=== PATIENT | male | born 1995 | race Caucasian/White ===

== ENCOUNTER → 2017-09-23 17:42 | Outpatient (CLI) | payer OTHER, SELFPAY ==
--- NOTE | 2017-09-23 17:50 | RAD_ITS ---
STUDY: X-RAY - LUMBAR SPINE REASON FOR EXAM: Male, 21 years old. Back pain, leg pain for one year. TECHNIQUE: 3 view(s) of the lumbar spine were obtained. COMPARISON: None FINDINGS: Normal lumbar lordosis. There is no substantial scoliosis. There is a normal alignment of the vertebrae. Normal vertebral bodies and endplates. L5-S1 mild disc space narrowing. On the lateral view there is slight narrowing of the neural foramen at L5-S1. The soft tissue structures are unremarkable. RAD/Lumbar Spine 2 or 3 Views IMPRESSION: Mild degenerative changes at L5-S1. If the patient has symptoms suggestive of neural foramina narrowing at L5-S1 consider correlation with cross-sectional imaging. Electronically Signed: Enoc Nettles MD at 5:55 EDT , Service support ,
== END ==
PROVIDERS: Family Provider Family Medicine; PCP Family Medicine; Visit Provider Anesthesiology Pain Medicine
DX: M54.9 Dorsalgia, unspecified (principal); M79.606 Pain in leg, unspecified
CPT/HCPCS: 72100

== ENCOUNTER 2018-07-11 17:29 | Emergency (ER) | payer SELFPAY ==
[2018-07-11 17:29] VITALS: BP 159/97; PULSE 76; RESP 16; TEMP 36.6; O2SAT 100; BMI 27.3
[2018-07-11] MEDS: Naproxen 500 MG Tablet PO (18:09)
--- NOTE | 2018-07-11 18:15 | RAD_ITS ---
STUDY: X-RAY - LUMBAR SPINE REASON FOR EXAM: Male, 22 years old. Fall TECHNIQUE: 3 view(s) of the lumbar spine were obtained. COMPARISON: None FINDINGS: There is no evidence of fracture or dislocation in the lumbar spine. The vertebral body heights and disc spaces are well-maintained. There are no significant degenerative changes. RAD/Lumbar Spine 2 or 3 Views IMPRESSION: No fracture or dislocation in the lumbar spine. Electronically Signed: Wilfred Kirkpatrick, at 18:48 EST Tel , Service support ,
--- NOTE | 2018-07-11 19:23 | ED.DCSUM_ITS ---
- ER Visit Summary Date of Service: 07/11/18 Chief Complaint: Back pain History of Present Illness: The patient is a 22 M presenting for evaluation secondary to back pain. Patient reports that over the course of about the last 2 years he has been dealing with back pain. Initially this started with a lifti ng and twisting injury about 2 years ago, but has been persistent since then. He did initially have intake with pain management and they told him that potentially he had some spinal stenosis. Patient states that his pain is continuous and seems to be worse with lying flat and moving. It is located in his lower back and actually radiates all the way down his bilateral legs to the level of his ankles. He denies any numbness or weakness. Denies any fevers night sweats or unintended weight loss. Denies any bowel or bladder incontinence recent surgeries or history of injections or IV drug abuse. Patient states that he takes Advil and it somewhat takes the edge off of it. Pain management put him on muscle relaxers and that did not help at all. Physical Examination: Vitals: Within normal limits General: Well-nourished well-developed no acute distress Head: Normocephalic atraumatic ENT: Moist mucous membranes Neck: Supple no JVD Cardiovascular: Heart regular rate and rhythm no murmurs Respiratory: Respirations nondistressed, lung sounds clear to auscultation bilaterally Abdominal: Soft, nontender, nondistended, normal bowel sounds, no evidence of abdominal masses or pulsatile mass Back: Normal to inspection, some midline tenderness to palpation in the lumbar region, straight leg raise negative bilaterally Extremities: Nontender, nonedematous, 2+ radial and PT pulses bilaterally symmetric Skin: Normal color no rash Neuro: 5/5 strength hip flexion, knee flexion, knee extension, dorsiflexion, plantarflexion, EHL. Sensation intact over all dermatomes of the lower extremities bilaterally, 2+ patellar and Achilles reflexes bilaterally symmetric, negative clonus bilaterally Test Results: Lumbar x-rays negative Emergency Department Course and Treatment: Patient presented for evaluation secondary to back pain. Symptomatology seems consistent with lumbar radiculopathy. X-rays were obtained due to the chronicity of this issue to rule out the possibility of bony lesions. This was found to be negative. Patient will be placed on a Medrol pack at this point, was recommended to follow-up again with pain management as he may benefit from therapy or epidural injections. Disposition: Discharge Impression: 1. Lumbar radiculopathy This note was generated with [employer] dictation software. It may contain incorrect words, spelling, and punctuation that were not noted in review of the chart prior to signing ED Disposition - Plan for ED Patient: Disposition: Home or Assisted Living Chief Complaint: Back Diagnosis: Lumbar radiculopathy Instructions: ED Sciatica Prescriptions: Meloxicam [Mobic] 7.5 mg PO DAILY #30 tab MethylPREDNISolone DosePak [Medrol DosePak] 4 mg PO UD #1 box Referrals: Sherine Hill MD [STAFF PHYSICIAN] - As soon as possible
[2018-07-11 19:28] VITALS: BP 140/74; PULSE 70; RESP 14; O2SAT 98
== END 2018-07-11 19:36 | disposition home or self-care (01) ==
PROVIDERS: Emergency Provider Emergency Medicine
DX: M54.16 Radiculopathy, lumbar region (principal)
CPT/HCPCS: 72100; 99283

== ENCOUNTER 2018-07-24 23:53 | Emergency (ER) | payer SELFPAY ==
[2018-07-24 23:54] VITALS: BP 128/80; PULSE 113; RESP 18; TEMP 36.7; O2SAT 97; BMI 27.3
--- NOTE | 2018-07-25 00:58 | ED.VISSUMM ---
- ER Visit Summary Date of Service: 07/25/18 Chief Complaint: Sore throat History of Present Illness: The patient is a 22 M who presents with a sore throat. It is been present for 2 days. His pain is worse on the left side. His pain is worse with swallowing. It is sharp. He complains of pain radiating to his left ear with swallowing. He does have some congestion but this is a chronic issue. He is also had some diarrhea. He reports cough. Physical Examination: Afebrile heart rate 113 vitals otherwise normal Patient does have posterior oropharyngeal erythema with tonsillar exudates the uvula is midline there is no tonsillar asymmetry no trismus clear speech Anterior cervical lymphadenopathy worse on the left Heart regular rhythm tachycardia Lungs clear Abdomen soft Test Results: Rapid strep negative Emergency Department Course and Treatment: Patient was treated with Decadron for symptomatic relief. He was advised on supportive care. He understands to return for new or worsening symptoms and was discharged home. Treatment Plan: [] Disposition: Discharge Impression: Viral pharyngitis This note was generated with [employer] dictation software. It may contain incorrect words, spelling, and punctuation that were not noted in review of the chart prior to signing ED Disposition - Plan for ED Patient: Referrals: Care Physician,No Primary [Primary Care Provider] -
--- NOTE | 2018-07-25 00:59 | ED.DEP ---
ED Disposition - Plan for ED Patient: Instructions: ED Pharyngitis Viral Referrals: Care Physician,No Primary [Primary Care Provider] -
[2018-07-25 01:02] VITALS: BP 122/74; PULSE 100; RESP 18; O2SAT 96
== END 2018-07-25 01:03 | disposition home or self-care (01) ==
LOC: ED 07-25 00:15
PROVIDERS: Emergency Provider Emergency Medicine
DX: J02.9 Acute pharyngitis, unspecified (principal); R19.7 Diarrhea, unspecified; H92.02 Otalgia, left ear; Z72.0 Tobacco use
CPT/HCPCS: 87880; 99283

== ENCOUNTER 2018-11-14 20:15 | Emergency (ER) | payer SELFPAY ==
[2018-11-14 20:17] VITALS: BP 146/77; PULSE 106; RESP 14; TEMP 36.8; O2SAT 96; BMI 28.5
--- NOTE | 2018-11-14 20:33 | CT_ITS ---
HISTORY:ABD PAIN X 2 WK/BLOOD IN STOOL TODAY ABD PAIN X 2 WK/BLOOD IN STOOL TODAY TECHNIQUE: Helically acquired images were obtained of the abdomen and pelvis following IV contrast. A radiation dose optimization technique was used for this scan. IV Contrast dosage and agent:100ML Isovue 370 Oral contrast: Yes no diverticulitis. There are air-fluid levels within the colon. No wall thickening is noted. COMPARISON: None FINDINGS: # of images incl. paperwork: 405 LOWER CHEST: Lung bases are clear. No cardiomegaly or pericardial effusion observed. LIVER: Homogeneous. No focal mass. GALLBLADDER AND BILIARY TREE: Contracted No calcified gallstones. There is no gallbladder distension or wall edema. No intra- or extrahepatic biliary ductal dilation. KIDNEYS AND URETERS: Normal renal size and position. There is no hydronephrosis. ADRENAL GLANDS: Non-enlarged. SPLEEN: Normal size without focal cystic or solid mass. PANCREAS: No focal cystic or solid mass. BOWEL: Focal dilated loop of small bowel in the left upper quadrant fluid filled. Additional fluid-filled loops of small bowel are also seen within the left upper quadrant. The ileal bowel loops are not distended. This may be secondary to enteritis. The terminal ileum is incompletely distended air-fluid levels are seen within the colon. No obstruction is noted. No diverticulitis. There is no significant wall thickening in the colon including the rectum LYMPH NODES: No enlarged mesenteric or retroperitoneal lymph nodes. PERITONEUM: No ascites or free air. No other fluid collection. VESSELS: Aorta is non-dilated. URINARY BLADDER: Mildly distended REPRODUCTIVE ORGANS: No pelvic masses or pelvic ascites. ABDOMINAL WALL: No discrete abdominal or pelvic wall hernia observed. BONES: No lytic or blastic abnormality observed. CT/Abdomen/Pelvis WITH Contrast IMPRESSION: There is no evidence of mechanical obstruction. There are fluid-filled mildly dilated loops of small bowel in left upper quadrant/jejunum which can be seen with enteritis. The ileum is unremarkable There are air-fluid levels seen within the colon. It is not significantly distended and there is no wall thickening. No diverticulitis The appendix is not visualized but no pericecal inflammation The gallbladder is contracted Individualized dose optimization techniques were used for this CT. at 2238 Reported and signed by: Lauryn Middleton DO Electronically Signed: Lauryn Middleton DO at 22:37 EDT Tel , Service support ,
--- NOTE | 2018-11-14 20:47 | ED.DCSUM_ITS ---
- ER Visit Summary Date of Service: 11/14/18 Chief Complaint: Abdominal pain History of Present Illness: The patient is a 23 M who notes 2 weeks of a near constant mid to lower abdominal pain. He has been alternating diarrhea with formed stools. No fevers nausea or vomiting. Today he noted some bright red blood in the water. He notes rectal pain during these past 2 weeks with bowel movements. No familial history of ulcerative colitis or Crohn's. No weight loss. No fevers. No urinary symptoms. Physical Examination: Afebrile vital signs are stable Gen: Well-nourished well-developed Head: Normocephalic atraumatic Eyes: Perrl EOMI ENT: TMs clear no rhinorrhea moist mucous membranes Neck: Supple no lymphadenopathy no JVD nontender CVS: Regular rate rhythm no murmurs normal S1-S2 Respiratory: No distress clear to auscultation bilaterally chest nontender Abdomen: Soft mild tenderness to palpation without guarding or rebound nondistended normal bowel sounds no masses Rectal: No fissure or hemorrhoids felt. No blood on the glove. No obvious abscess or skin irritation Back: Nontender Extremity: Nontender no edema Skin: Normal color no rash Neuro: alert orientated ?3 CN II-XII intact normal strength sensation reflexes gait cerebellar Psych: Normal affect normal mood Test Results: White count is nonspecifically elevated at 13. Letter lites are normal. CT down pelvis demonstrates no evidence of colitis or diverticulitis. There are some dilated loops of small bowel consistent with an enteritis. Emergency Department Course and Treatment: Patient was advised of the findings. Patient was advised that if symptoms persist he will most likely need a colonoscopy. We will refer him to primary care. Also give him the name of gastroenterology to follow-up with if he needs one. Impression: 1. Acute abdominal pain 2. Enteritis This note was generated with [employer] dictation software. It may contain incorrect words, spelling, and punctuation that were not noted in review of the chart prior to signing ED Disposition - Plan for ED Patient: Disposition: Home or Assisted Living Instructions: ED Gastroenteritis Non Infec Referrals: Flavio Chandler MD [STAFF PHYSICIAN] - (call to arrange follow up) Additional Instructions: For Gastroenterology in [place]
[2018-11-14 21:01] LABS: ALB/GLOB Ratio 1.2 RATIO (0.9-2.4); AST(SGOT) 18 U/L (15-37); Alanine Aminotransfer ALT/SGPT 39 U/L (16-61); Albumin, Serum 4.2 g/dL (3.2-5.0); Alkaline Phosphatase 114 U/L (45-117); Anion Gap 7 (5-15); BUN 14 mg/dL (7-18); BUN/Creat Ratio 15.5 RATIO (10-20); Calcium,Total 9.4 mg/dL (8.5-10.1); Chloride 105 mmol/L (98-107); Creatinine, Serum 0.91 mg/dL (0.70-1.30); EST Glomerular Filtration Rate 112 mL/min (>60); Est Glom Filt Rate - Afr Amer 136 mL/min (>60); Estimated Creatinine Clearance 124.23 ml/min; Globulin 3.4 g/dL (2.2-4.2); Glucose 86 mg/dL (74-106); Lipase 56 U/L (73-393); Potassium 3.8 mmol/L (3.5-5.1); Protein, Total 7.6 g/dL (6.4-8.2); Sodium Level 139 mmol/L (136-145)
[2018-11-14 21:02] LABS: Absolute Lymphocyte Count 3.01 X10^3/ul (0.83-4.51); Absolute Neutrophil Count 4.5 X10^3/uL (2.0-7.7); Basophil# 0.09 X10^3/uL; Basophil% 0.8 % (0-1); Differential Indicated SCAN CRITERIA MET; Eosinophil# 3.53 X10^3/uL; Eosinophils% 29.5 % (0-5); Hematocrit 42.2 % (40-54); Lymphocyte # 3.01 X10^3/ul (4.0); Lymphocyte % 25.2 % (19-41); Mean Corp Hgb Conc 35.5 g/gl (32-36); Mean Corpuscular Hgb 30.7 pg (27.0-32.0); Mean Corpuscular Volume 86.5 fL (80-94); Mean Platelet Vol. 8.4 fl (6.2-12.0); Monocyte# 0.76 X10^3/uL; Monocyte% 6.4 % (0-10); Neutrophil # 4.53 X10^3/uL (2.7-7.7); Neutrophil % 37.8 % (47-70); POSITIVE COUNT YES; POSITIVE DIFFERENTIAL YES; POSITIVE MORPHOLOGY NO; Platelet Count 162 K/mm3 (150-450); RBC Distribution Width CV 12.4 % (11.6-14.6); RBC Distribution Width SD 38.9 fl (35.1-43.9); Red Blood Count 4.88 M/mm3 (4.6-6.2)
[2018-11-14 21:41] LABS: Differential Comment SCANNED; Platelet Estimate ADEQUATE (ADEQ); Reactive Lymphocyte 1+
[2018-11-14 22:49] VITALS: BP 129/72; PULSE 76; RESP 15; O2SAT 97
[2018-11-17 15:10] LABS: Pathologist Review Reviewed
== END 2018-11-14 23:01 | disposition home or self-care (01) ==
PROVIDERS: Emergency Provider Emergency Medicine
DX: K52.9 Noninfective gastroenteritis and colitis, unspecified (principal)
CPT/HCPCS: 74177; 80053; 83690; 85025; 99283; Q9967; A4216

== ENCOUNTER 2020-06-23 11:05 | Emergency (ER) | payer SELFPAY ==
[2020-06-23 11:05] VITALS: BP 115/86; PULSE 80; RESP 16; TEMP 35.6; O2SAT 98; BMI 34.5
[2020-06-23 11:06] VITALS: BP 115/86; PULSE 85; RESP 15; TEMP 35.6; O2SAT 98
--- NOTE | 2020-06-23 11:19 | ED.DCSUM_ITS ---
History of Present Illness Chief Complaint: Other, Pain/Inj Informant: Patient Narrative: 24-year-old male with no significant past medical history presents with right- sided jaw pain. States it is swelling and aching. States it began last night. States it had resolved throughout the night but began again this morning. States that he is a former smoker. Denies any fever, chills, headache, vision change, neck pain. Denies any trauma. Past Medical History - Allergies and Home Meds Allergies/Adverse Reactions: Allergies No Known Allergies Allergy (Verified 06/23/20 11:19) Primary Care Physician: Care Physician,No Primary [Primary Care Provider] - Past Medical History: None Surgical History: no surgical history Lives: Alone Smoking Status: Former smoker Alcohol: None Drugs: None Review of Systems General: Denies: Chills, Fever, Sweats Eyes: Denies: Visual changes - bilaterally, Diplopia ENT: Reports: - - right jaw pain. Denies: Rhinorrhea, Sore throat Cardiovascular: Denies: Chest pain, Palpitations Respiratory: Denies: Dyspnea, Cough, Dyspnea on exertion Gastrointestinal: Denies: Abdominal pain, Nausea, Vomiting, Diarrhea, Melena, Hematochezia Genitourinary: Denies: Dysuria, Hematuria, Frequency Musculoskeletal: Denies: Back pain, Extremity Pain Skin: Denies: Rash, Wounds Neurological: Denies: Headache, Weakness, Numbness Physical Exam Vital Signs/Narrative: Vital Signs Temp Pulse Resp BP Pulse Ox 06/23/20 11:05 96.0 F L 80 16 115/86 H 98 Inital Vital Signs reviewed: Yes General: Well nourished, Well developed, No Acute Distress Head: Normocephalic, Atraumatic Eyes: Perrl, EOMI ENT: Moist mucous membranes, No rhinorrhea, - - Mild edema to the right face. No overlying erythema. Poor dentention throughout. No abscess. Floor of mouth soft. Neck: Supple, Nontender Cardiovascular: Regular rate, Regular rhythm, No murmurs Respiratory: No distress, CTA bilaterally, Chest nontender Abdomen: Soft, Nontender, Nondistended, Normal bowel sounds Back: Nontender, Normal Inspection Extremities: Nontender, No edema Skin: Normal color, No rash Neurological: Alert, Oriented x3, Cranial nerves II-XII grossly intact, Normal Strength, Normal Sensation Psychological: Normal affect, Normal Mood Diagnostic/Tx/Re-eval - Medical Decision Making Appears well and nontoxic. Phonating and tolerating secretions. Floor of mouth soft to palpation. Patient has poor dentition this is likely a dental infection. Patient will be treated with penicillin. Given Toradol in the emergency department and Naprosyn for home. Will be given dental follow-up. Asked to return for new or worsening symptoms. Patient agreeable and discharged home in stable condition. Impression: 1. Facial swelling 2. Dental caries ED Disposition - Plan for ED Patient: Disposition: Home or Assisted Living Instructions: ED Dental Pain Prescriptions: Naproxen [Naprosyn] 500 mg PO BID #14 tab Prescription Printed Penicillin V Potassium 500 mg PO 4X/DAY #40 tab Prescription Printed Additional Instructions: Please follow up with dentist in next 2-3 days.
[2020-06-23] MEDS: Ketorolac 15 MG/ML Vial IM (11:21)
== END 2020-06-23 11:44 | disposition home or self-care (01) ==
LOC: ED 11:38
PROVIDERS: Emergency Provider Emergency Medicine
DX: K02.9 Dental caries, unspecified (principal); R22.0 Localized swelling, mass and lump, head; Z87.891 Personal history of nicotine dependence
CPT/HCPCS: 96372; 99282

== ENCOUNTER 2020-10-13 07:17 | Emergency (ER) | payer SELFPAY ==
[2020-10-13 07:19] VITALS: BP 129/88; PULSE 103; RESP 18; TEMP 36.6; O2SAT 98; BMI 34.2
--- NOTE | 2020-10-13 07:39 | EDS_ITS ---
HPI History of Present Illness Chief Complaint: Palpitations Detail of Chief Complaint: Concern for panic attacks for several months Informant: patient Onset/Context/Timing Onset: Month(s) Current Severity: Moderate Narrative Narrative: Patient states that he has struggled with what he believes are panic attacks and anxiety for several months. Patient states that had a hard time sleeping last night because he feels anxious and feels like his heart racing and at times feels like he can get a full breath. Patient was concerned that he did not feel he could go to work today because he does not do well with heat and at work it is quite hot and oftentimes his symptoms get exacerbated when he is at work. Patient not currently medicated with antianxiety medications. He does not feel suicidal or homicidal. Patient states that otherwise he feels fine. Prior similar symptoms: Yes PFSH PFSH Home Medications NK 10/13/20 [History Last Taken Unknown] lorazepam [Ativan] 1 mg PO TID PRN #14 tab 10/13/20 [Rx Last Taken Unknown] Allergy/AdvReac Type Severity Reaction Status Date / Time No Known Allergies Allergy Verified 10/13/20 07:18 Social History Smoking Status: Former smoker ROS ROS ED Constitutional Constitutional ED: Reports systems reviewed and no addt'l complaints, except as documented; Denies body ache(s), change in weight or chills Eyes Eyes: Denies acute decrease in peripheral vision, change in vision, double vision or loss of vision ENT ENT ED: Reports none; Denies ear pain, lip swelling, loss taste/smell, neck pain, otalgia or sore throat Cardiovascular Cardiovascular: Reports none and racing heartbeat; Denies abdominal pain, chest pain with activity, leg edema, lightheadedness, orthopnea, palpitations, par oxysmal nocturnal dyspnea, rapid heart rate or syncope Respiratory/Chest Respiratory/Chest: Reports none and dyspnea; Denies change in mental status, dry cough, dyspnea on exertion, hemoptysis, orthopnea, paroxysmal nocturnal dyspnea, shortness of breath at rest or shortness of breath with exertion Gastrointestinal Gastrointestinal: Reports none; Denies abdominal pain, change in stool character, diarrhea, hematemesis, hematochezia, melena, rectal bleeding or vomiting Genitourinary Genitourinary ED: Reports none; Denies abdominal discomfort, anuria, dysuria, genital pain or polyuria Musculoskeletal Musculoskeletal: Reports none; Denies arthralgias, back pain, difficulty walking, extremity pain, muscle weakness or myalgias Integumentary Reports none; Denies abscess or rash Neurologic Neurologic: Reports none; Denies abnormal gait, confusion, focal weakness, frequent falls, headache(s), loss of vision, numbness, paresthesias, radicular pain, vertigo or weakness Psychiatric Psychiatric: Reports systems reviewed and no addt'l complaints, except as documented and none; Denies behavioral changes, confusion, difficulty concentrating, hallucinations, suicidal ideation, tactile hallucinations or visual hallucinations Endocrine Endocrinology: Denies none, cold intolerance, excessive sweating, fatigue or heat intolerance Hematologic/Lymphatic Hematologic/Lymphatic: Reports none; Denies anemia, easy bleeding or easy bruising Allergic/Immunologic Allergic/Immunologic ED: Denies as per HPI, none, lip swelling, mouth swelling, throat swelling, tongue swelling or hives EXAM Physical Exam Const Vital Signs: 10/13/20 07:19 Temperature 97.8 F Temperature Source Temporal Pulse Rate 103 H Respiratory Rate 18 Blood Pressure 129/88 H Blood Pressure Mean 101 Pulse Ox 98 Oxygen Delivery Method Room Air Positive well nourished and well developed General Appearance ED: well developed and NAD HEENT Reports TM's clear and moist mucous membranes normocephalic and atraumatic; Negative for trauma or tenderness Tympanic Membrane ED: Yes TM's clear Eyes PERRL and EOMs intact bilaterally General Eye ED: Negative for pale conjunctiva or scleral icterus Neck no lymphadenopathy, supple and no JVD General: Negative for tenderness Chest Wall inspection of chest normal and palpation of chest normal Chest: Negative for tenderness Resp normal respiratory effort and clear to auscultation bilaterally Effort and Inspection: Negative for respiratory distress or pain with movement Auscultation: Negative for rhonchi, wheezes or diminished lung sounds Cardio regular rate, regular rhythm, S1 normal heart sound, S2 normal heart sound and no murmurs Peripheral Pulses: pulses 2+ throughout GI normal to inspection, nondistended, normoactive bowel sounds, soft to palpation, non-tender, non-distended and no masses Back/Spine no CVA tenderness and no thoracic nor lumbar tenderness Extremity normal to inspection General Extremety ED: Negative for edema General Extremity: Negative for edema Neuro oriented x3, CN's II-XII intact bilaterally, no sensory deficits noted and gait normal Sensorium / Orientation: awake, alert, oriented to person, oriented to place and oriented to time Motor Exam: strength 5/5 throughout and strength abnormal Psych mental status grossly normal Skin no rashes or lesions noted and no wounds MDM MDM MDM Narrative Medical decision making narrative: I suspect patient likely having anxiety and panic attacks. Patient drove himself here and does not want to have any medication here but would like a prescription for something to help with this until he can follow-up with a primary care physician. Patient will be given a prescription for Ativan as needed for suspected anxiety. EKG Initial EKG: Attestation: I personally reviewed and interpreted this EKG as follows: Interpretation: Sinus Rhythm and No Acute Injury Pattern Comments: Sinus rhythm at 98 bpm with no acute ST segment changes. Discharge Plan Triage Chief Complaint: Palpitations ED Provider: Doc Patel Dx/Rx/DC Orders Clinical Impression: Anxiety Instructions: ED Anxiety Reaction Prescriptions: New lorazepam [Ativan] 1 mg tablet 1 mg PO TID PRN (Reason: anxiety) Qty: 14 RF: 0 No Action NK RF: 0 Stand Alone Forms: ED Work / School Excuse Primary Care Provider: Care Physician,No Primary Referrals: Yovanny Cr MD [STAFF PHYSICIAN] - 3-5 Days Care Physician,No Primary [Primary Care Provider] -
[2020-10-13 08:06] VITALS: BP 141/91; PULSE 80; RESP 14; O2SAT 98
--- NOTE | 2020-10-13 08:15 | EKG12_ITS ---
Test Reason : PALPS Blood Pressure : / mmHG Vent. Rate : 098 BPM Atrial Rate : 098 BPM P-R Int : 142 ms QRS Dur : 082 ms QT Int : 356 ms P-R-T Axes : 034 267 010 degrees QTc Int : 454 ms Normal sinus rhythm Normal ECG Confirmed by GIFTY ROBISON, JIGNA ([id number]), news editor ULICES MORA ([id number]) on 10/17/2020 10:08:57 AM Referred By: ANGELICA Confirmed By:JIGNA DURBIN MD
== END 2020-10-13 08:11 | disposition home or self-care (01) ==
LOC: ED 08:10
PROVIDERS: Emergency Provider Emergency Medicine; PCP Internal Medicine
DX: R00.2 Palpitations (principal); F41.0 Panic disorder [episodic paroxysmal anxiety]; F41.9 Anxiety disorder, unspecified; Z79.899 Other long term (current) drug therapy; Z87.891 Personal history of nicotine dependence
CPT/HCPCS: 93005; 99282

== ENCOUNTER 2021-06-20 09:37 | Emergency (ER) | payer SELFPAY ==
[2021-06-20 09:39] VITALS: BP 123/97; PULSE 116; RESP 18; TEMP 36.6; O2SAT 98; BMI 32.1
--- NOTE | 2021-06-20 10:34 | EDS_ITS ---
HPI History of Present Illness Chief Complaint: Dental Informant: patient Onset/Context/Timing Onset: Yesterday Context: Gradual Onset Timing: Continuous Current Severity: Mild Maximum Severity: Mild Associated Symptoms Assocated Symptom - Dental: face swelling; Negative for fever, jaw swelling, cold sensitivity or hot sensitivity Narrative Narrative: 25-year-old male no seen past medical history. Currently on no medications nor any allergies. He has had dental pain left front upper tooth and he now has some swelling of the gums and of his left face. Denies any fever. No trauma. States this all began yesterday. Prior similar symptoms: Yes Recent Illness/Hospitalization: No PFSH PFSH Medical History no medical history Home Medications lorazepam [Ativan] 1 mg PO TID PRN #14 tab 10/13/20 [Rx Last Taken Unknown] penicillin V potassium 500 mg PO 4X/DAY #40 tab 06/20/21 [Rx Last Taken Unknown] Allergy/AdvReac Type Severity Reaction Status Date / Time No Known Allergies Allergy Verified 06/20/21 09:38 Surgical History no surgical history Social History Smoking Status: Never smoker ROS ROS ED ROS Narrative Denies. Review of Systems ROS Unobtainable: Denies due to encephalopathy Constitutional Constitutional ED: Denies fever(s) Eyes Eyes: Denies change in vision ENT ENT ED: Denies ear pain Cardiovascular Cardiovascular: Denies chest pain Respiratory/Chest Respiratory/Chest: Denies dyspnea Gastrointestinal Gastrointestinal: Denies abdominal pain, diarrhea, nausea or vomiting Genitourinary Genitourinary ED: Denies dysuria Musculoskeletal Musculoskeletal: Denies myalgias Integumentary Denies rash Neurologic Neurologic: Denies headache(s) Psychiatric Psychiatric: Denies depression Endocrine Endocrinology: Denies polyuria Hematologic/Lymphatic Hematologic/Lymphatic: Denies easy bruising Allergic/Immunologic Allergic/Immunologic ED: Denies urticaria EXAM Physical Exam Narrative Exam Narrative: 25-year-old male no acute distress. Vital signs stable afebrile. HEENT exam he has mild gum swelling of the right Upper jaw on the front. No abscess. No trismus. Nothing to drain. Posterior pharynx normal. Neck nontender no lymphadenopathy. Minimal swelling to the right side of his cheek. Lungs clear to auscultation bilaterally. Heart regular rhythm. No murmur. Abdomen soft nontender. Otherwise exam unremarkable. Const Vital Signs: 06/20/21 09:39 Temperature 97.9 F Temperature Source Temporal Pulse Rate 116 H Respiratory Rate 18 Blood Pressure 123/97 H Blood Pressure Mean 105 Pulse Ox 98 Oxygen Delivery Method Room Air Positive well nourished and well developed; Negative for cachectic, contractures or unkempt General Appearance ED: well developed and NAD; Negative for unkempt, cachectic, contractures or pallor Nutritional Appearance: Negative for cachectic HEENT HEENT Narrative: Mild right upper gum swelling. No asthma process. No trismus. Mild right facial swelling. No lymphadenopathy. tenderness; Negative for trauma Mouth ED: Yes tongue normal and Yes salivary gland normal Mouth: tongue normal and salivary gland normal Teeth and Gingiva: gingiva abnormal Throat: posterior oropharynx normal Eyes PERRL and EOMs intact bilaterally Neck no lymphadenopathy, supple and no JVD General: normal visual inspection; Negative for anterior neck swelling or tenderness Lymph Lymphatic: no lymphadenopathy noted; Negative for lymphadenopathy Chest Wall inspection of chest normal and palpation of chest normal Resp normal respiratory effort and clear to auscultation bilaterally Cardio regular rate, regular rhythm, S1 normal heart sound, S2 normal heart sound and no murmurs GI normal to inspection, nondistended, normoactive bowel sounds, non-tender, non- distended and no masses Palpation: soft Back/Spine no CVA tenderness General Back: Negative for CVA tenderness Thoracic Spine / Upper Back: Negative for thoracic spinal tenderness or paraspinal muscle tenderness Extremity normal to inspection and no joint enlargement General Extremety ED: Negative for edema General Extremity: Negative for edema Neuro oriented x3, moves all extremities and no focal motor deficits Sensorium / Orientation: alert, oriented to person, oriented to place and oriented to time; Negative for orientation impaired Psych mental status grossly normal Appearance: Negative for unkempt Attitude: No agitated Mood & Affect: Negative for depressed, anxious or tearful Skin no rashes or lesions noted General Skin Exam: Negative for pallor MDM MDM MDM Narrative Medical decision making narrative: 25-year-old male with gingivitis. Will start on Pen-Vee K first dose given in ER. 4 times a day for 10 days. Follow-up with a dentist. Discharge Plan Triage Chief Complaint: Dental ED Provider: Paxton Ramirez Dx/Rx/DC Orders Clinical Impression: Acute gingivitis, Dental infection Instructions: Understanding Gingivitis Prescriptions: New penicillin V potassium 500 mg tablet 500 mg PO 4X/DAY Qty: 40 RF: 0 No Action lorazepam [Ativan] 1 mg tablet 1 mg PO TID PRN (Reason: anxiety) Qty: 14 RF: 0 Primary Care Provider: Care Physician,No Primary Referrals: Silvana Juarez [NON-STAFF] - As soon as possible Care Physician,No Primary [Primary Care Provider] - Activity Restrictions/Additional Instructions: Tylenol and Motrin for pain. Warm salt water gargling. Use antibiotic 1 pill 4 times a day for 10 days. Call and follow-up with a dentist as soon as possible. Disposition Disposition: Home, Self Care
[2021-06-20] MEDS: Penicillin Vk 250 MG Tablet 500 MG PO (10:37)
[2021-06-20 10:43] VITALS: BP 127/88; PULSE 59; RESP 16; O2SAT 97
== END 2021-06-20 10:44 | disposition home or self-care (01) ==
PROVIDERS: Emergency Provider Emergency Medicine; Visit Provider Emergency Medicine
DX: K05.00 Acute gingivitis, plaque induced (principal); K04.7 Periapical abscess without sinus
CPT/HCPCS: 99283

== ENCOUNTER 2021-12-31 20:10 | Emergency (ER) | payer BC, SELFPAY ==
[2021-12-31 20:11] VITALS: BP 137/90; PULSE 104; RESP 18; TEMP 36.5; O2SAT 98; BMI 33.4
--- NOTE | 2021-12-31 20:37 | ED.VIS.LOWEX ---
HPI History of Present Illness Chief Complaint: Lower Extremity Injury Detail of Chief Complaint: Puncture wound to right foot Informant: patient Narrative Narrative: Patient presents to the emergency department chief complaint of puncture wound to the right foot that occurred an hour and a half ago. Patient states that he stepped on a board that had a echo nail in it. Patient is unsure when his last tetanus was but he thinks it was over 12 years ago. Patient has no medical history otherwise. PFSH PFSH Medical History no medical history Home Medications lorazepam 1 mg tablet (Ativan) 1 mg PO TID PRN anxiety #14 tabs 10/13/20 [Rx Last Taken Unknown] penicillin V potassium 500 mg tablet 500 mg PO 4X/DAY #40 tabs 06/20/21 [Rx Last Taken Unknown] ciprofloxacin HCl 500 mg tablet 500 mg PO BID #20 TABLETS 12/31/21 [Rx Last Taken Unknown] Allergy/AdvReac Type Severity Reaction Status Date / Time No Known Allergies Allergy Verified 12/31/21 20:12 Surgical History no surgical history Social History Smoking Status: Never smoker ROS ROS ED Review of Systems ROS Unobtainable: other Constitutional Constitutional ED: Reports lethargy; Denies chills, fever(s), sweats or weight loss Eyes Eyes: Denies blurry vision, change in vision or diplopia ENT ENT ED: Denies rhinorrhea or sore throat Cardiovascular Cardiovascular: Reports chest pain and racing heartbeat; Denies orthopnea Respiratory/Chest Respiratory/Chest: Reports dyspnea and dyspnea on exertion; Denies cough, orthopnea or sputum Gastrointestinal Gastrointestinal: Denies abdominal pain, diarrhea, nausea or vomiting Genitourinary Genitourinary ED: Denies dysuria, hematuria or urinary frequency Musculoskeletal Musculoskeletal: Denies arthralgias, back pain, myalgias or neck pain Integumentary Reports other Details: Puncture wound right foot ; Denies abscess, Abrasions or rash Neurologic Neurologic: Denies headache(s) or weakness Psychiatric Psychiatric: Denies anxiety, depression or suicidal thoughts Endocrine Endocrinology: Denies polydipsia, polyphagia or polyuria Hematologic/Lymphatic Hematologic/Lymphatic: Denies easy bleeding, easy bruising or lymphadenopathy Allergic/Immunologic Allergic/Immunologic ED: Denies mouth swelling, tongue swelling or urticaria EXAM Physical Exam Const Vital Signs: 12/31/21 20:11 Temperature 97.7 F L Temperature Source Temporal Pulse Rate 104 H Respiratory Rate 18 Blood Pressure 137/90 H Blood Pressure Mean 105 Pulse Ox 98 Oxygen Delivery Method Room Air Positive well nourished and well developed General Appearance ED: well developed and NAD HEENT Reports TM's clear and moist mucous membranes normocephalic and atraumatic; Negative for trauma or tenderness Tympanic Membrane ED: Yes TM's clear Eyes PERRL and EOMs intact bilaterally General Eye ED: Negative for pale conjunctiva or scleral icterus Neck no lymphadenopathy, supple and no JVD General: Negative for tenderness Chest Wall inspection of chest normal and palpation of chest normal Chest: Negative for tenderness Resp normal respiratory effort and clear to auscultation bilaterally Effort and Inspection: Negative for respiratory distress or pain with movement Auscultation: Negative for rhonchi, wheezes or diminished lung sounds Cardio regular rate, regular rhythm, S1 normal heart sound, S2 normal heart sound and no murmurs Peripheral Pulses: pulses 2+ throughout GI normal to inspection, nondistended, normoactive bowel sounds, soft to palpation, non-tender, non-distended and no masses Back/Spine no CVA tenderness and no thoracic nor lumbar tenderness Extremity Extremity Narrative: Patient is a small puncture wound to the right foot over the area of the first MTP joint. No active bleeding noted. No foreign bodies noted within the wound. Neurovascularly intact. Patient does state that the nail was intact after he removed his foot off of it. General Extremety ED: Negative for edema General Extremity: Negative for edema Neuro oriented x3, CN's II-XII intact bilaterally, no sensory deficits noted and gait normal Sensorium / Orientation: awake, alert, oriented to person, oriented to place and oriented to time Motor Exam: strength 5/5 throughout and strength abnormal Psych mental status grossly normal Skin no rashes or lesions noted and no wounds MDM MDM MDM Narrative Medical decision making narrative: Because the patient was wearing rubber shoes with socks I will cover him with Cipro. Patient was given an Adacel tetanus booster. 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 Discharge Plan Triage Chief Complaint: Lower Extremity Injury ED Provider: Doc Patel Dx/Rx/DC Orders Clinical Impression: Puncture wound of foot, right Instructions: ED Puncture Wound (Foot) Prescriptions: New ciprofloxacin HCl [ciprofloxacin HCl] 500 MG tablet 500 mg PO BID Qty: 20 0RF No Action lorazepam [Ativan] 1 mg tablet 1 mg PO TID PRN (Reason: anxiety) Qty: 14 0RF penicillin V potassium 500 mg tablet 500 mg PO 4X/DAY Qty: 40 0RF Primary Care Provider: Care Physician,No Primary Referrals: Flavio Chandler MD [STAFF PHYSICIAN] - 3-5 Days Care Physician,No Primary [Primary Care Provider] - Disposition Disposition: Home, Self Care
[2021-12-31] MEDS: Ciprofloxacin 500 MG Tablet PO (21:26)
[2021-12-31] MEDS: Diphth,Pertuss(Acell),Tet Vac 0.5 ML Vial IM (21:26)
[2021-12-31 21:28] VITALS: RESP 16
== END 2021-12-31 21:29 | disposition home or self-care (01) ==
PROVIDERS: Emergency Provider Emergency Medicine; Visit Provider Emergency Medicine
DX: S91.331A Puncture wound without foreign body, right foot, initial encounter (principal); W45.0XXA Nail entering through skin, initial encounter; Z23 Encounter for immunization
CPT/HCPCS: 90471; 99283

== ENCOUNTER 2023-08-30 19:47 | Emergency (ER) | payer BC, SELFPAY ==
[2023-08-30 19:47] VITALS: BP 120/82; PULSE 126; RESP 20; TEMP 38.4; O2SAT 96; BMI 37.9
[2023-08-30 22:57] VITALS: BP 139/94; PULSE 111; PULSE 114; RESP 17; RESP 18; TEMP 39.1; TEMP 39.2; O2SAT 100; O2SAT 99
--- NOTE | 2023-08-30 22:59 | EDS_ITS ---
HPI History of Present Illness Chief Complaint: Fever Detail of Chief Complaint: Fever, chills Informant: patient and spouse/S.O. Onset/Context/Timing Onset: Days (Onset Saturday) Context: Sudden Onset Timing: Continuous and Waxes and wanes Quality: Documented temperature 104.0 ?F Location: Not applicable Current Severity: Moderate Maximum Severity: Severe Worsened by: Possibly dental procedure Relieved by: Nothing Associated Symptoms Associated Symptoms: Not feeling well and myalgias and arthralgias Narrative Narrative: Patient is a 27-year-old male. He underwent dental procedure on Saturday. He had deep cleaning. Shortly after he had his teeth and gums treated he developed sense of unwell. He states he did not feel well. He subsequently developed fever and chills. Tmax is 104.0 ?F. He does complain of mild head pain. He denies rhinorrhea, congestion postnasal drainage. No sore throat. He states he has a slight cough at best. He denies chest pain. He denies abdominal pain. [place] nausea, vomit diarrhea. He denies urologic symptoms. He denies rash. He denies back pain. Prior similar symptoms: No Recent Illness/Hospitalization: No PFSH PFSH Home Medications lorazepam 1 mg tablet (Ativan) 1 mg PO TID PRN anxiety #14 tabs 10/13/20 [Rx Last Taken Unknown] penicillin V potassium 500 mg tablet 500 mg PO 4X/DAY #40 tabs 06/20/21 [Rx Last Taken Unknown] ciprofloxacin HCl 500 mg tablet 500 mg PO BID #20 TABLETS 12/31/21 [Rx Last Taken Unknown] Allergy/AdvReac Type Severity Reaction Status Date / Time No Known Allergies Allergy Verified 08/30/23 19:50 Social History (Updated 08/30/23 @ 23:[address] Guillermo Grullon MD) household members: significant other Smoking Status: Never smoker ROS ROS ED Constitutional Constitutional ED: Reports chills, fever(s) and sweats Eyes Eyes: Denies blurry vision, change in vision or diplopia ENT ENT ED: Reports other Details: Gum pain initially ; Denies ear pain, rhinorrhea or sore throat Cardiovascular Cardiovascular: Reports palpitations; Denies chest pain, orthopnea, paroxysmal nocturnal dyspnea or racing heartbeat Respiratory/Chest Respiratory/Chest: Reports cough; Denies dyspnea, dyspnea on exertion, orthopnea, paroxysmal nocturnal dyspnea or sputum Gastrointestinal Gastrointestinal: Reports nausea; Denies abdominal pain, diarrhea, melena or vomiting Genitourinary Genitourinary ED: Denies dysuria, hematuria or urinary frequency Musculoskeletal Musculoskeletal: Reports myalgias; Denies arthralgias, back pain or neck pain Integumentary Denies abscess, Abrasions or rash Neurologic Neurologic: Reports headache(s); Denies paresthesias or weakness Endocrine Endocrinology: Denies cold intolerance or heat intolerance Hematologic/Lymphatic Hematologic/Lymphatic: Reports systems reviewed and no addt'l complaints, except as documented EXAM Physical Exam Const Vital Signs: 08/30/23 19:47 08/30/23 22:57 08/30/23 22:57 Temperature 101.1 F H 102.6 F H 102.4 F H Temperature Source Oral Oral Oral Pulse Rate 126 H 114 H 111 H Respiratory Rate 20 H 17 18 Respiratory Effort Respiratory Pattern Blood Pressure 120/82 H 139/94 H 139/94 H Blood Pressure Mean 94 109 109 Pulse Ox 96 99 100 Oxygen Delivery Method Room Air Room Air Room Air 08/30/23 23:00 08/30/23 23:38 Temperature 99.8 F H Temperature Source Oral Pulse Rate 105 H Respiratory Rate 105 H Respiratory Effort Normal Respiratory Pattern Normal Blood Pressure 123/67 H Blood Pressure Mean 85 Pulse Ox 97 Oxygen Delivery Method Room Air Positive well nourished, well developed and obese Constitutional Narrative: Patient does not appear well. He does not appear toxic either. General Appearance ED: well developed and NAD; Negative for cyanotic, diaphoretic or pallor Nutritional Appearance: obese HEENT Reports TM's clear and dry mucous membranes HEENT Narrative: Posterior pharynx out erythema or exudate. Uvula is midline. Patient has evidence of periodontal disease dental cavities etc. There is no trismus. There is no evidence or concern for Ludewig's angina. There is no preauricular lymphadenopathy. There is no facial swelling or erythema. There is slight nasal drainage noted. Tympanic Membrane ED: Yes TM's clear Mouth ED: Yes dry mucous membranes Mouth: dry mucous membranes Eyes PERRL and EOMs intact bilaterally General Eye ED: Negative for pale conjunctiva or scleral icterus Neck no lymphadenopathy, supple and no JVD Neck Narrative: Trachea is midline. There is no stridor. There is no dysphonia. There is no cervical lymphadenopathy. Chest Wall inspection of chest normal and palpation of chest normal Resp normal respiratory effort and clear to auscultation bilaterally Cardio regular rhythm, S1 normal heart sound, S2 normal heart sound and no murmurs Rate: tachycardic GI normal to inspection, nondistended, normoactive bowel sounds, non-tender, non- distended and no masses; Negative for hepatosplenomegaly Auscultation: normoactive bowel sounds Back/Spine no CVA tenderness Back/Spine Narrative: There is no point percussion tenderness over the dorsal, lumbar or cervical spine. Cervical Spine: Negative for cervical spine tenderness Thoracic Spine / Upper Back: Negative for thoracic spinal tenderness Lumbar Spine / Lower Back: Negative for lumbar spinal tenderness Extremity normal to inspection Neuro oriented x3, CN's II-XII intact bilaterally and no sensory deficits noted Sensorium / Orientation: alert Psych mental status grossly normal Skin no rashes or lesions noted, no wounds and No skin turgor normal General Skin Exam: Negative for jaundice or pallor MDM MDM MDM Narrative Medical decision making narrative: With patient having minimal cough and symptoms started several hours after he had dental procedure done concerned patient may be bacteremic. There is no history medic fever. There is no heart murmur that was noted on auscultation. Will obtain blood cultures blood work. Because he does have mild rhinorrhea on exam we will obtain rapid antigen for COVID, RSV and influenza. To his knowledge that he had no ill contacts. His vitals are remarkable for tachycardia tachypnea and he is febrile. First temperature was 101.1 ?F. Repeat is 102.4. He was treated with antipyretic. Will confirm if patient is still on Pen-Vee K 500. History & Record Review Additional record(s) reviewed:: Prior ED visit (Dental pain, anxiety, lumbar sacral pain. Is been seen several times over the past 4 to 5 years.) and Prior labs Lab Data Attestation: I reviewed the patient's lab results. Lab results narrative: CBC is unremarkable. Comprehensive metabolic panel reveals slight elevation in AST and ALT. Total bili is normal. Rapid antigen for COVID, influenza and RSV was positive for type a influenza. This would explain all of patient's symptoms. Do not believe his symptoms are due to the dental treatment he had this past Saturday. Labs: Laboratory Results - last 24 hr 03/15/24 23:00 WBC 6.2 RBC 4.71 Hgb 14.2 Hct 41.3 MCV 87.7 MCH 30.1 MCHC 34.4 RDW Std Deviation 39.1 RDW Coeff of Darion 12.1 Plt Count 131 L MPV 8.4 Immature Gran % (Auto) 0.200 Neut % (Auto) 55.0 Lymph % (Auto) 23.8 Roberts % (Auto) 20.7 H Eos % (Auto) 0.0 Baso % (Auto) 0.3 Absolute Neuts (auto) 3.4 Absolute Lymphs (auto) 1.47 Nucleated RBC % 0 Sodium 134 L Potassium 3.9 Chloride 103 Carbon Dioxide 26.0 Anion Gap 5 BUN 14 Creatinine 1.13 Estim Creat Clear Calc 121.95 Est GFR (MDRD) Af Amer 101 Est GFR (MDRD) Non-Af 84 BUN/Creatinine Ratio 12.4 Glucose 90 Lactic Acid 1.1 Calcium 8.7 Total Bilirubin 0.60 AST 40 H ALT 81 H Alkaline Phosphatase 92 Total Protein 8.0 Albumin 4.3 Globulin 3.7 Albumin/Globulin Ratio 1.2 Treatment and Re-Evaluation :: Patient was informed of results. He was discharged home with appropriate home- going structures. Discharge Plan Triage Chief Complaint: Fever ED Provider: Guillermo Grullon Dx/Rx/DC Orders Clinical Impression: Chronic periodontal disease, Fever and chills, Type A influenza, Sinus tachycardia, Dental caries, Gingivitis Instructions: ED Influenza (Adult) Prescriptions: No Action lorazepam [Ativan] 1 mg tablet 1 mg PO TID PRN (Reason: anxiety) Qty: 14 0RF penicillin V potassium 500 mg tablet 500 mg PO 4X/DAY Qty: 40 0RF ciprofloxacin HCl [ciprofloxacin HCl] 500 MG tablet 500 mg PO BID Qty: 20 0RF Primary Care Provider: Care Physician,No Primary Referrals: Care Physician,No Primary [Primary Care Provider] -
[2023-08-30] MEDS: Ketorolac 15 MG/ML Vial IV (23:02)
[2023-08-30] MEDS: 0.9% Normal Saline (1000mL) 1,000 ML 1000 ML IV (23:03)
[2023-08-30 23:14] LABS: Absolute Lymphocyte Count 1.47 X10^3/uL (0.83-4.51); Absolute Neutrophil Count 3.4 X10^3/uL (2.0-7.7); Basophil# 0.02 X10^3/uL; Basophil% 0.3 % (0-1); Hematocrit 41.3 % (40-54); Hemoglobin 14.2 g/dL (13.0-16.5); Lymphocyte # 1.47 X10^3/ul (0.83-4.51); Lymphocyte % 23.8 % (19-41); Mean Corp Hgb Conc 34.4 g/dL (32-36); Mean Corpuscular Hgb 30.1 pg (27.0-32.0); Mean Corpuscular Volume 87.7 fL (80-94); Mean Platelet Vol. 8.4 fl (6.2-12.0); Monocyte# 1.28 X10^3/uL; Monocyte% 20.7 % (0-10); NRBC Flagged by Analyzer 0 % (0-5); Neutrophil # 3.39 X10^3/uL (2.7-7.7); Platelet Count 131 K/mm3 (150-450); RBC Distribution Width CV 12.1 % (11.6-14.6); RBC Distribution Width SD 39.1 fl (35.1-43.9); Red Blood Count 4.71 M/mm3 (4.6-6.2); White Blood Count 6.2 K/mm3 (4.4-11.0)
[2023-08-30 23:29] LABS: ALB/GLOB Ratio 1.2 RATIO (0.9-2.4); AST(SGOT) 40 U/L (15-37); Alanine Aminotransfer ALT/SGPT 81 U/L (16-61); Albumin, Serum 4.3 g/dL (3.2-5.0); Alkaline Phosphatase 92 U/L (45-117); Anion Gap 5 (5-15); BUN 14 mg/dL (7-18); BUN/Creat Ratio 12.4 RATIO (10-20); Calcium,Total 8.7 mg/dL (8.5-10.1); Chloride 103 mmol/L (98-107); Creatinine, Serum 1.13 mg/dL (0.70-1.30); EST Glomerular Filtration Rate 84 mL/min (>60); Est Glom Filt Rate - Afr Amer 101 mL/min (>60); Estimated Creatinine Clearance 121.95 ml/min; Globulin 3.7 g/dL (2.2-4.2); Glucose 90 mg/dL (74-106); Potassium 3.9 mmol/L (3.5-5.1); Sodium Level 134 mmol/L (136-145)
[2023-08-30 23:36] LABS: Lactic Acid 1.1 mmol/L (0.4-1.9)
[2023-08-30 23:38] VITALS: BP 123/67; PULSE 105; RESP 105; TEMP 37.7; O2SAT 97
[2023-08-31 01:13] VITALS: BP 118/74; PULSE 105; RESP 18; TEMP 37.2; O2SAT 97
== END 2023-08-31 01:15 | disposition home or self-care (01) ==
LOC: ED 22:59
PROVIDERS: Emergency Provider Emergency Medicine; Visit Provider Emergency Medicine
DX: K05.10 Chronic gingivitis, plaque induced (principal); K02.9 Dental caries, unspecified; F41.9 Anxiety disorder, unspecified; J34.89 Other specified disorders of nose and nasal sinuses; R50.9 Fever, unspecified; J10.1 Influenza due to other identified influenza virus with other respiratory manifestations; R00.0 Tachycardia, unspecified; E66.9 Obesity, unspecified
CPT/HCPCS: 80053; 83605; 85025; 87040; 87631; 96361; 96374; 99284; J7030; A4216